=== PATIENT | female | born 1960 | race Caucasian/White ===

== ENCOUNTER → 2017-08-14 | Outpatient (CLI) | payer BC ==
[~2017-08-14] MED LIST: BCPILLS PO; FERR324T PO; IBUP-1450 PO; [UNRECOGNIZED DRUG - MIXTURE] PO
--- NOTE | 2017-08-14 15:09 | MAMMOGRAPHY REPORT ---
BILATERAL DIGITAL SCREENING MAMMOGRAM TOMOSYNTHESIS WITH CAD: 08/14/2017 CLINICAL HISTORY: Routine screening. Patient has no complaints. TECHNIQUE: Breast tomosynthesis in addition to standard 2D mammography was performed. Current study was also evaluated with a Computer Aided Detection (CAD) system. COMPARISON: Comparison is made to exams dated: 08/07/2016 mammogram, 08/03/2015 mammogram, 4 mammogram, 07/28/2013 mammogram, 07/24/2012 mammogram, and 07/24/2011 mammogram - [facility]. BREAST COMPOSITION: There are scattered areas of fibroglandular density in both breasts. FINDINGS: Bilateral axillary lymph nodes seen on the MLO views appear increasingly prominent and inc reased in size comparing to prior mammograms. Additional workup with targeted bilateral axillary ult rasound is recommended. No suspicious mass, architectural distortion, asymmetry or suspicious calcifications are seen in the breasts. There is evidence of prior surgery in the left breast. IMPRESSION: ACR BI-RADS CATEGORY 0: INCOMPLETE EVALUATION: NEED ADDITIONAL IMAGING EVALUATION The increased bilateral axillary lymph nodes need additional imaging evaluation. The patient will be called to schedule an appointment. Approximately 10% of breast cancers are not detected with mammography. A negative mammographic report should not delay biopsy if a clinically suggestive mass is present. Lesley Kaba M.D. ay/:08/14/2017 08:17:01 Saddle Stitching Machine Operator: Beatriz ALBERTO(Kristi)(Kelvin)(BD), [facility] letter sent: Addl Imaging 0 BI-RADS Code: ACR BI-RADS Category 0: Incomplete Evaluation: Need Additional Imaging Evaluation
== END | disposition home or self-care (01) ==
LOC: C.MAMM 07:15
PROVIDERS: ATTEND Obstetrics & Gynecology
DX: Z12.31 Encounter for screening mammogram for malignant neoplasm of breast (principal); R59.0 Localized enlarged lymph nodes

== ENCOUNTER → 2017-08-22 | Outpatient (CLI) | payer BC ==
--- NOTE | 2017-08-22 15:18 | MAMMOGRAPHY REPORT ---
ULTRASOUND OF BOTH BREASTS: 08/22/2017 CLINICAL HISTORY: Increasingly prominent bilateral axillary lymph nodes seen on recent screening mamm ogram. The patient denies any chronic inflammatory or infectious diseases. COMPARISON: Comparison is made to exams dated: 08/14/2017 mammogram, 08/07/2016 mammogram, 08/18/2015 ultrasound, 08/03/2015 mammogram, 07/29/2014 mammogram, and 07/28/2013 mammogram - [facility]. TECHNIQUE: Real-time targeted ultrasound was performed of bilateral axillary regions. FINDINGS: Real-time, high resolution targeted ultrasound was performed of the left axilla. There ar e multiple lymph nodes which retain normal echogenic fatty anay but the peripheral cortices are mildl y thickened. The largest lymph node measures 1.6 cm in maximal extent. Another lymph node measures 1.2 cm and has a cortical thickness of 4 mm. Targeted ultrasound of the right axilla also demonstrat es prominent right axillary lymph nodes which have normal echogenic fatty anay but the cortices are m ildly thickened. The lymph nodes appear symmetric bilaterally. Given the increased prominence mammo graphically, findings are indeterminate for lymphoma or lymphoproliferative disease and ultrasound-gu ided core needle biopsy is recommended for further evaluation. IMPRESSION: ACR BI-RADS CATEGORY 4: SUSPICIOUS - FOLLOW-UP RECOMMENDED Increasingly prominent bilateral axillary lymph nodes mammographically. On ultrasound, the lymph nod es are bilaterally symmetric and retain normal fatty anay although the cortices are mildly thickened. Given the interval change mammographically, findings are indeterminate and ultrasound-guided core n eedle biopsy of one of the prominent left axillary lymph nodes is recommended for further evaluation. A phone call was made to the physician's office to confirm faxed results were received. The patient was verbally notified of the results. She tentatively scheduled the biopsy before leaving the depart ment. Alexandrea Dacosta M.D. ah/:08/22/2017 09:59:00 Attending Technologist: Christine ALBERTO(Kristi)(M), [facility] Wine Bottle Inspector: Alexandrea Dacosta MD, [facility] letter sent: Abnormal 4/5 BI-RADS Code: ACR BI-RADS Category 4: Suspicious
== END | disposition home or self-care (01) ==
LOC: C.MAMM 09:35
PROVIDERS: ATTEND Obstetrics & Gynecology
DX: R59.0 Localized enlarged lymph nodes (principal)

== ENCOUNTER → 2017-08-27 | Outpatient (CLI) | payer BC ==
--- NOTE | 2017-08-27 14:14 | Discharge Instructions ---
Discharge Instructions Procedure Procedure Date: Aug 27, 2017. Reason for visit: Left Axillary Node. Discharge Discharge Date: Aug 27, 2017. Discharge Diagnosis: post left axillary lymph node biopsy Instructions Activity Recommendations: Additional Limitations (see below) Return to School/Work: no limitations Recommended Home Diet: No Limitations Provider Instructions: ACTIVITY RECOMMENDATIONS: * No lifting, pushing, pulling or exercising the affected side for three days. RETURN TO SCHOOL/WORK: * You may return to work/school after the procedure, but do not perform any strenuous activities for 24 to 48 hours. MEDICATIONS: * Tylenol (two 325 mg) every four to six hours if needed for mild pain (if not allergic to Tylenol). DIET: * Resume previous diet. SPECIAL CARE INSTRUCTIONS: * Keep biopsy site dry for 24 hours. May shower after 24 hours, but do not soak (bathe) incision. * May remove Tegaderm (plastic patch) tomorrow AFTER showering. * Leave the steri-strips on for one week. Allow the steri-strips to fall off by themselves. If not off after one week, you may remove them. You may place a Bandaid crosswise over the strips, if desired. * Apply ice 10 minutes on and 10 minutes off as needed. * Wear a bra at bedtime to sleep more comfortably for 2-3 days. * Your referring physician should have the results after approximately 5 to 7 business days. * Call for unusual bleeding, fever, drainage, etc or if you have any questions call [phone] during normal business hours or after hours call Dr Kaba, . FOLLOW UP VISIT: Follow-up with Referring Physician as scheduled. Allergies Coded Allergies: No Known Allergies (Verified , 09/30/03) Ab [facility] Recommendations: Call your doctor if: * Temperature above 101 degrees * Pain not relieved by pain medicine ordered * There is increased drainage or redness from any incision * You have any unanswered questions or concerns. Your Doctors Instructions noted above were prepared by provider Lesley Kaba. Patient Signature Section: Patient Instructions Signature Page Magy Andrade Patient (or Guardian) Signature/Date: I have read and understand the instructions given to me by my caregivers. Caregiver/RN/Doctor Signature/Date: The above-named patient and/or guardian has received patient instructions on this date. + Original Patient Signature Page (only) stays with chart. Please make copy for patient.
--- NOTE | 2017-08-28 07:46 | MAMMOGRAPHY REPORT ---
ULTRASOUND GUIDED BIOPSY LEFT BREAST: 08/27/2017 CLINICAL HISTORY: 57-year-old woman presents for biopsy of a left axillary lymph node with mildly thi ckened cortex, but bilateral axillary lymph nodes are increasingly prominent comparing to prior mammo grams. COMPARISON: Comparison is made to exams dated: 08/22/2017 ultrasound, 08/14/2017 mammogram, 6 mammogram, 08/18/2015 ultrasound, 08/03/2015 mammogram, and 07/29/2014 mammogram - [facility]. PATIENT CONSENT: The procedure, risks and benefits were discussed with the patient and informed conse nt was obtained both verbally and in writing. Specific risks to this procedure include: bleeding, in fection, puncture of adjacent structure, nontarget biopsy, sampling error, pain, metal allergy and me dication reaction. PROCEDURE DESCRIPTION: A time out was performed and the left axilla was agreed as the site of biopsy. The skin was prepped and draped in the usual sterile fashion. The lymph node with undulating and mil dly thickened cortex in the left axilla was identified and targeted for biopsy. Subcutaneous and intr aparenchymal 1% buffered lidocaine, with and without epinephrine, was administered as local anesthesi a. A skin incision was made. Through the incision, 4 samples were taken with an 18-gauge Quick-Core biopsy device. A ribbon shaped metallic marker was placed at the biopsy site. Hemostasis was achieved after manual compression. The patient tolerated the procedure well and there was no immediate compli cation. The samples were sent to the pathology department in an appropriately labeled container. A postprocedure left MLO view was obtained to document appropriate clip deployment. The ribbon-shape d biopsy marker clip is seen within a prominent left axillary lymph node. No significant postbiopsy hematoma identified. IMPRESSION: ULTRASOUND GUIDED BIOPSY Status post ultrasound guided core biopsy of a prominent left axillary lymph node, with biopsy marker placed at the site. The patient will receive notification of the biopsy results from her referring physician. Lesley Kaba M.D. ay/:08/27/2017 15:09:29 Paver Installer: Rossi GUILLAUME)(Kelvin), [facility]
--- NOTE | 2017-08-28 07:49 | MAMMOGRAPHY REPORT ---
UNILATERAL LEFT DIGITAL DIAGNOSTIC MAMMOGRAM: 08/27/2017 CLINICAL HISTORY: Status post ultrasound-guided core biopsy of a prominent lymph node with mildly thi ckened and undulating cortex in the left axilla. Please refer to the report from left axillary lymph node biopsy performed at the same time for full d etail. IMPRESSION: POST PROCEDURE IMAGING FOR MARKER PLACEMENT Please refer to the report from left axillary lymph node biopsy performed at the same time for full d etail. Approximately 10% of breast cancers are not detected with mammography. A negative mammographic report should not delay biopsy if a clinically suggestive mass is present. Lesley Kaba M.D. ay/:08/27/2017 15:07:14 Lei Maker: Rossi ALBERTO(Kristi)(M), [facility] BI-RADS Code: Post Procedure Imaging For Marker Placement
== END | disposition home or self-care (01) ==
LOC: C.MAMM 13:10
PROVIDERS: ATTEND Obstetrics & Gynecology
DX: R92.8 Other abnormal and inconclusive findings on diagnostic imaging of breast (principal); L98.6 Other infiltrative disorders of the skin and subcutaneous tissue

== ENCOUNTER → 2017-09-18 | Outpatient (CLI) | payer BC ==
[~2017-09-18] MED LIST changes: +ASCO500T3 PO; +CHOL100010 PO; +HYDR-5688 PO; +MULT-770 PO; +OMEG10007 PO; +POLY335019 PO
--- NOTE | 2017-09-25 13:59 | CODING QUERY NO DIAGNOSIS ---
TREATMENT RENDERED WITHOUT A DIAGNOSIS To promote full compliance with coding requirements relating to patient care, physician participation is requested in all cases of breastfeeding program coordinator uncertainty. Please assist us with providing a diagnosis/symptom for the test(s) below: A diagnosis/symptom was not documented on your Order. A valid diagnosis/symptom is required to bill all insurances. Please remember that we are unable to code a diagnosis of rule out, probable, possible, questionable, or suspected. Tests that require a diagnosis for date of service 09/18/17: * EKG DIAGNOSIS: Provider Signature: Date: Thank you Yakelin Raman [employer] Your [employer]ion! Information Management Once completed, please kindly fax back to [phone] For questions please call [phone]
== END | disposition home or self-care (01) ==
LOC: C.LAB 11:27
PROVIDERS: ATTEND Surgery
DX: Z01.810 Encounter for preprocedural cardiovascular examination (principal); R59.1 Generalized enlarged lymph nodes

== ENCOUNTER → 2017-09-28 | Day surgery (SDC) | payer BC ==
[2017-09-19 07:33] VITALS: Ht 160 cm; Wt 62.7 kg
[~2017-09-28] VITALS: Ht 160 cm; Wt 62.7 kg
[~2017-09-28] MED LIST changes: +ATROPINE SULFATE 0.1 MG/ML 5ML SYR IV PRN; -BCPILLS PO; +BUPIVACAINE 0.5 % 5 MG/1 ML PF 10ML VIAL ONE; +CEFAZOLIN 2000MG IV PUSH 10 ML IV SCH; +DEXAMETHASONE SOD INJ 4 MG/ML VIAL ONE; +EpHEDrine SULFATE INJ 50 MG/ML AMP IV PRN; +FENTANYL CITRATE INJ 50 MCG/1 ML 2 ML VIAL IV PRN; +FENTANYL CITRATE INJ 50 MCG/1 ML 2 ML VIAL ONE; -FERR324T PO; +HYDROCODONE/ACETAMOPHEN 5/325MG TAB PO PRN; -IBUP-1450 PO; +KETOROLAC TROMETHAMINE 30 MG/ML VIAL ONE; +LACTATED RINGER'S 1000ML 1,000 ML IV SCH; +LIDOCAINE HCL 1% 20 ML VIAL ONE; +LIDOCAINE HCL 2% 2 ML VIAL (20MG/ML) ONE; +MIDAZOLAM HCL 1 MG/ML 2ML VIAL ONE; +ONDANSETRON INJ 2 MG/ML 2 ML VIAL IV PRN; +ONDANSETRON INJ 2 MG/ML 2 ML VIAL ONE; +PROMETHAZINE HCL INJ 6.25 MG in SODIUM CHLORIDE 0.9% 50ML 50 ML IV PRN; +PROPOFOL IV EMULSION 10 MG/ML 20 ML VIAL IV ONE; +SODIUM CHLORIDE 0.9% 1000ML 1,000 ML IV SCH; -[UNRECOGNIZED DRUG - MIXTURE] PO
--- NOTE | 2017-09-28 09:37 | History & Physical Bridge - SC ---
H&P Re-Evaluation Bridge Note: I have examined the patient, reviewed the History & Physical and in the interval since the performance of the History & Physical I have noted the following changes of clinical significance: No changes noted
--- NOTE | 2017-09-28 10:30 | [facility] Operative Report ---
Operative Report Operative Date Sep 28, 2017. Pre-Operative Diagnosis Left axilla lymphadenopathy Post-Operative Diagnosis Same as pre-op Procedure(s) Performed Left Axillary Lymph Node Biopsy With Needle Localization Surgeon Waist Pleater Surgeon(s) Brendon LOGAN Findings 3 lymph nodes Specimens A.Left axillary lymph nodes Out of patient at 1015, sent to [facility] Anesthesia gen/ LMA Complication(s) None Disposition Recovery Room / PACU I attest to the content of the Intraoperative Record and any orders documented therein. Any exceptions are noted below.
--- NOTE | 2017-09-28 10:33 | Discharge Instructions-SurgCtr ---
Discharge Instructions Date of Service Sep 28, 2017. Visit Reason for Visit: Lymphadenopathy Discharge Discharge Diagnosis / Problem: Lt axillary lymphadenopathy Discharge Goals Goal(s): Decrease discomfort, Improve function, Improve disease control Medications Stopped Medications Name(s): FISH OIL STOPPED 1 WEEK AGO Activity Recommendations Activity Limitations: as noted below Lifting Limitations: no more than 25 pounds Exercise/Sports Limitations: until after follow-up appointment May Resume Sexual Activity: when tolerated Shower/Bathe: tomorrow Driving or Machine Use: resume 1 day after discharge Anesthesia . Post Anesthesia Instructions: If you have had General Anesthesia or IV Sedation: * Do not drive today. * Resume driving when surgeon permits. * Do not make important decisions or sign legal documents today. * Call surgeon for: 1. Temperature elevations greater than 101 degrees F. 2. Uncontrollable pain. 3. Excessive bleeding. 4. Persistent nausea and vomiting. 5. Medication intolerance (nausea, vomiting or rash). * For nausea and vomiting use only clear liquids such as: tea, soda, bouillon until nausea subsides, then gradually increase diet as tolerated. * If you have any concerns or questions, call your surgeon's office. If physician is unavailable and it is an emergency, call 911 or go to the nearest emergency room. . Instructions / Follow-Up Instructions / Follow-Up SPECIAL CARE INSTRUCTIONS: * Cover incisions and change daily for comfort/drainage. * May use ibuprofen for pain as tolerated. * Expect some swelling and bruising. Call your doctor if: * Temperature above 101 degrees * Pain not relieved by pain medicine ordered * There is increased drainage or redness from any incision * You have any unanswered questions or concerns [phone]. FOLLOW UP VISIT: If not already scheduled, please call the office for a follow-up visit. for next week- some suture removal OFFICE PHONE NUMBER: Dr. Frankel Office Diet Recommendations Home Diet: resume previous diet Procedures Procedures Performed: Left Axillary Lymph Node Biopsy With Needle Localization Pending Studies Studies pending at discharge: no Medical Emergencies . Who to Call and When: Medical Emergencies: If at any time you feel your situation is an emergency, please call 911 immediately. . Non-Emergent Contact Non-Emergency issues call your: Primary Care Provider, Surgeon . . "Provider Documentation" section prepared by Russel Frankel. .
--- NOTE | 2017-09-28 10:43 | OPERATIVE REPORT ---
DATE OF OPERATION: 09/28/2017 NAME OF OPERATION: Left axillary lymph node biopsy. PREOPERATIVE DIAGNOSIS: Left axillary lymphadenopathy. POSTOPERATIVE DIAGNOSIS: Same. STAFF SURGEON: Russel Frankel MD. CONGRESSIONAL REPRESENTATIVE: Quentin Ferrer PA-C. ANESTHESIA: General. DESCRIPTION OF PROCEDURE: The patient was brought in the operating room and placed on the operating table in supine position. After appropriate anesthetic, she had a needle placed in the left axilla. Her left axilla was prepped and draped around this area. Skin and subcutaneous tissue were anesthetized using 0.5% plain Marcaine. Then an incision made, carrying dissection down around the needle. It was relatively deep, I found 3 lymph nodes, they were sent for mammography. The clip was within the tissue. At this point, the deep tissue was reapproximated using 2-0 plain catgut suture. Then, the skin reapproximated using 5-0 Prolene suture. As a note, my banking assistant helped with prepping, draping, entering the axilla, exposing the tissue and closing the axilla. I attest to the content of the Intraoperative Record and any orders documented therein. Any exception s are noted below.
[2017-09-28 11:16] VITALS: TEMP 36.7
--- NOTE | 2017-09-28 11:43 | Anesthesia Progress Nt - [facility] ---
Anesthesia Post Op Note Date & Time Sep 28, 2017 at 11:43 Vital Signs Pain Intensity: 5.0 Vital Signs Past 12 Hours Date Time Temp Pulse Resp B/P (MAP) Pulse Ox O2 Delivery O2 Flow Rate FiO2 09/28/17 11:16 36.7 61 16 152/81 (104) 99 Room Air 09/28/17 11:07 37.7 68 16 144/84 99 Room Air 09/28/17 11:00 131/78 09/28/17 10:58 64 19 99 09/28/17 10:58 65 19 09/28/17 10:55 134/85 09/28/17 10:53 71 17 09/28/17 10:53 71 17 100 09/28/17 10:50 124/81 09/28/17 10:48 69 15 100 09/28/17 10:48 70 15 09/28/17 10:45 129/73 09/28/17 10:43 71 13 100 09/28/17 10:43 73 13 09/28/17 10:42 77 11 09/28/17 10:42 76 11 100 09/28/17 10:40 124/81 09/28/17 10:38 110/64 09/28/17 10:37 36.6 69 16 110/64 Mask 09/28/17 10:37 66 09/28/17 10:37 66 99 09/28/17 07:28 36.8 76 22 114/77 (89) 98 Room Air Notes Mental Status: alert / awake / arousable, participated in evaluation Pt Amnestic to Procedure: Yes Nausea / Vomiting: adequately controlled Pain: adequately controlled Airway Patency, RR, SpO2: stable & adequate BP & HR: stable & adequate Hydration State: stable & adequate Anesthetic Complications: no major complications apparent
[2017-09-28 11:54] VITALS: BP 144/85; PULSE 60; O2SAT 99
--- NOTE | 2017-09-28 15:06 | MAMMOGRAPHY REPORT ---
SPECIMEN LEFT BREAST: 09/28/2017 CLINICAL HISTORY: Status post excision of a left axillary lymph node. COMPARISON: Comparison is made to exams dated: 08/27/2017 ultrasound biopsy, 08/27/2017 mammogram, 1 10/23/2016 ultrasound, 08/14/2017 mammogram, 08/07/2016 mammogram, and 08/18/2015 ultrasound - [facility]. Findings: A radiograph was performed of the left axillary surgical specimen. The localized biopsy ma rker clip is present within the specimen. The intact needle localization wire and needle are also pr esent. Results were discussed with Dr. Frankel over the telephone. IMPRESSION: SPECIMEN The imaged specimen contains the preoperatively-localized biopsy marker clip. Alexandrea Dacosta M.D. ah/:09/28/2017 10:28:12 Zipper Setter: Linn ALBERTO(Kristi)(M), [facility]
--- NOTE | 2017-09-28 15:06 | MAMMOGRAPHY REPORT ---
NEEDLE LOCALIZATION LEFT BREAST: 09/28/2017 CLINICAL HISTORY: Reason ultrasound-guided biopsy of an ultrasound guided biopsy of a left axillary l ymph node which yielded atypical lymphoid infiltrate. Surgical excision of the lymph node was recomme nded by the pathologist. PROCEDURE DESCRIPTION: With ultrasound guidance, aseptic technique, and 1% lidocaine as the local ane sthetic, the previously biopsied left axillary lymph node with an associated biopsy marker clip was l ocalized with a 5 cm Yi II needle. The axillary lymph node and associated biopsy marker clip are located along the distal portion of the wire. The needle was left in place. The patient tolerated t he procedure without complication. COMPARISON: Comparison is made to exams dated: 08/27/2017 ultrasound biopsy, 08/27/2017 mammogram, 1 10/23/2016 ultrasound, 08/14/2017 mammogram, 08/18/2015 ultrasound, and 08/03/2015 mammogram - [facility]. IMPRESSION: NEEDLE LOCALIZATION Ultrasound guided needle localization of the previously biopsied left axillary lymph node with an ass ociated biopsy marker clip. Alexandrea Dacosta M.D. ah/:09/28/2017 08:04:50 Law Tutor: Linn ALBERTO(R)(M), [facility]
== END | disposition home or self-care (01) ==
LOC: X.SURG 07:19
PROVIDERS: ATTEND Surgery
DX: R59.1 Generalized enlarged lymph nodes (principal); Z80.3 Family history of malignant neoplasm of breast; Z80.41 Family history of malignant neoplasm of ovary